=== PATIENT | female | born 1980 | race Hispanic/Latino ===

== ENCOUNTER 2022-05-16 04:16 | Emergency (ER) | payer MEDICAID, MEDICARE ==
[~2022-05-16] VITALS: Ht 157.5 cm; Wt 114.3 kg
[2022-05-16 04:18] VITALS: BP 143/78
[2022-05-16] MEDS ORDERED: IBUP-2070 PO (05:53)
[2022-05-16] MEDS ORDERED: METH4TAB3 PO (05:53)
[2022-05-16] MEDS ORDERED: LIDOCAINE HCL 2% VISCOUS 15 ML UDCUP PO ONE (06:00)
[2022-05-16] MEDS ORDERED: SOLU-MEDROL 125MG VIAL IM ONE (06:00)
== END 2022-05-16 06:10 | disposition home or self-care (01) ==
LOC: EDH 04:16
DX: K12.2 Cellulitis and abscess of mouth (principal); J02.9 Acute pharyngitis, unspecified; Z20.822 Contact with and (suspected) exposure to COVID-19; Z88.6 Allergy status to analgesic agent; Z21 Asymptomatic human immunodeficiency virus [HIV] infection status
CPT/HCPCS: 99283; 87635; 87880; 96372; C9803; J2930